=== PATIENT | male | born 1990 | race Two or more races ===

== ENCOUNTER 2024-08-26 17:13 | Emergency (ER) | payer SELFPAY ==
[2024-08-26 17:30] VITALS: BP 149/99; PULSE 88; RESP 18; TEMP 36.8; O2SAT 99; BMI 27.5
--- NOTE | 2024-08-26 17:33 | XR_ITS ---
Examination: Duplex scan of the lower extremity, unilateral left complete Date and time of exam: August 26, 2024 1946 hrs. Indications: Left foot and leg pain and swelling 2 months, post injury or Technique: Duplex scan of the extremity veins using B-mode/grayscale imaging and Doppler spectral analysis and color flow Attention is directed to internal echogenicity, compression and augmentation involving these veins, color flow assessment, spectral analysis Findings: Major deep venous structures in the extremity demonstrate normal course and caliber. There is no evidence of deep vein thrombosis. Normal color flow and spectral analysis Impression: Negative for DVT..
--- NOTE | 2024-08-26 17:33 | XR_ITS ---
Examination: Foot, left, 3 views Technique: AP, oblique, lateral views foot, 3 views Date and time of exam: August 26, 2024 at 1748 hrs. Indications: Walking injury one month ago Findings: Healed fracture midshaft second metatarsal No acute fracture No cortical bone destruction Impression: Healed fracture mid second metatarsal shaft
--- NOTE | 2024-08-26 17:33 | XR_ITS ---
EXAMINATION: Ankle, left 3 views . Technique: Ankle AP, oblique, lateral 3 views Date and time of exam: August 26, 2024 1748 hrs. Indications: Walking injury to the ankle one month ago, ankle pain Findings: Mild osteopenia No fracture or dislocation Minute plantar bony calcaneal spur Impression: No fracture or dislocation
--- NOTE | 2024-08-26 17:33 | PD.EDRME ---
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
[2024-08-26] MEDS: IBUPROFEN TAB 400 MG TABLET 800 MG PO (18:13)
--- NOTE | 2024-08-26 21:00 | EDNOTE_ITS ---
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 Denies any redness. Denies any fever denies any other complaints no medications taken prior to arrival. Related Data Previous Rx's ?Medication ?Instructions ?Recorded ibuprofen 800 mg tablet 800 mg PO TID PRN pain #30 tabs 08/26/24 Allergies Allergy/AdvReac Type Severity Reaction Status Date / Time No Known Allergies Allergy Verified 08/26/24 17:16 Review of Systems Review of Systems Narrative Review of Systems: Review of system reviewed and within normal limits except mentioned in HPI ED Exam Narrative Physical exam: VITAL SIGNS: Reviewed. GENERAL APPEARANCE: Alert and interactive, follows commands, no acute distress, HEAD AND FACE: Non-traumatic. ENT: PERRL, pink conjunctivitis, eyelid no trauma, Mucous membrane moist. NECK: Supple, nontender, no nuchal rigidity. CHEST: No tenderness, no crepitus, no paradoxical movement, no retractions. LUNGS: Clear, well ventilated, symmetric, no rales, no wheezing, no ronchi, no stridor, good breath sounds bilaterally. HEART: Regular rate, regular rhythm, no murmur, no gallops. ABDOMEN: Soft, positive bowel sounds, nondistended, no guarding, nontender, no rebound, no masses, RECTAL: Deferred. GENITAL: Deferred. NEUROLOGICAL: Gross motor function intact sensory function intact, Appropriate for age. MUSCULOSKELETAL: low back nontender, full range of motion. EXTREMITIES: Swelling left foot, no redness, nontender, full range of motion. Distal neurovascular status intact on the left lower extremity , foot and toes SKIN: Color pink, dry, no rash, no lacerations, no abrasions, no contusions. LYMPHATICS: Deferred. Course Quality Measures none Orders Category Date Time Status US venous doppler LE LT Stat Exams 08/26/24 17:33 Completed XR ankle comp LT min 3V Stat Exams 08/26/24 17:33 Completed XR foot comp LT min 3V Stat Exams 08/26/24 17:33 Completed Ibuprofen Tab [Motrin Tab] Med 08/26/24 17:33 Discontinued 800 mg PO X1 ONE Vital Signs Vital signs: Vital Signs Temperature 98.3 F 08/26/24 17:30 Pulse Rate 88 08/26/24 17:30 Respiratory Rate 18 08/26/24 17:30 Blood Pressure 149/99 H 08/26/24 17:30 Pulse Oximetry (%) 99 08/26/24 17:30 Oxygen Delivery Method Room Air 08/26/24 17:30 Extremity Injury, Lower MDM Narrative MDM Narrative:: 33-year-old male presents to the emergency department complains of left foot pain and swelling 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 Denies any redness. Denies any fever denies any other complaints no medications taken prior to arrival. X-ray of the foot showed healed fracture of the second metatarsal Ultrasound of the lower extremities negative for DVT Patient data External records reviewed:: None Clinical information provided by:: none Social determinants that could affect healthcare access:: none Patient has the following chronic illnesses:: None How is presenting disease/condition affected by chronic disease/condition?: exacerbated by Evaluation data The following diagnostics were reviewed and interpreted by me:: radiology exam(s) Lab and/or radiology exams considered but not ordered:: None Interpretation Summary: Ultrasound of the lower extremities negative for DVT. X-ray of the foot showed healed fracture of the metatarsal second Medications / Prescriptions Medications or Prescriptions considered but not ordered:: None Medication administrations:: Medication Administration History Discontinued Medications Ibuprofen (Ibuprofen Tab 400 Mg Tablet) 800 mg PO X1 ONE Stop: 08/26/24 17:34 Last Admin: 08/26/24 18:13 Dose: 800 mg Documented By: CAMILLE Celeste Consultations Consultation(s) initiated? (list below): No Diagnosis Extremity Injury, Lower Differential Diagnosis: fracture of toe, ankle fracture and other (Foot swelling, DVT) Most likely diagnosis given after review of the tests above:: Foot swelling, healed metatarsal fracture Admission Indicated Admission indicated?: not indicated Admission Request Was there a request for admission?: No Disposition Plan Disposition Plan: Discharge Discharge Attestation Discharge Attestation: The patient was given an opportunity to ask questions and understood the discharge instructions. Discharge instructions specifically effects, indications for sooner follow up or return to the emergency department, and the expected course of current diagnosis. Patient condition: Stable Discharge Plan Plan Patient Disposition: HOME (Self Care) Disposition Comment: stable Prescriptions/Referrals Prescriptions/Med Rec: New ibuprofen 800 mg tablet 800 mg PO TID PRN (Reason: pain) Qty: 30 0RF Referrals: No Primary/Family,Physician [Primary Care Provider] - In 1 week Problem List Clinical Impression: Foot swelling, Healed fracture of metatarsal bone Patient/Caregiver Discharge Instructions Discharge Activity: activity as tolerated Education Materials: ED Leg Swelling in a Single Leg Additional Instructions: Thank you for the opportunity for serving you today. You are stable for discharged . You are advised to: Follow-up with your PCP in 1 to 2 days Return to ED for worsening of symptoms Increase oral fluids Take medication as prescribed Elevate your legs as needed Wear compression stocking as needed in the morning remove it in the afternoon Print Language: Persian Stand Alone Forms: Sara Award Info., Work/School Release, Patient Portal Info Letter BRETT/COOPER Supervising Physician BRETT/COOPER Supervising Physician: MD Michelle
== END 2024-08-26 21:17 | disposition home or self-care (01) ==
PROVIDERS: Emergency Provider Emergency Medicine
DX: S99.912A Unspecified injury of left ankle, initial encounter (principal); S99.922A Unspecified injury of left foot, initial encounter; X58.XXXA Exposure to other specified factors, initial encounter; Y93.01 Activity, walking, marching and hiking; Y99.0 Civilian activity done for income or pay
CPT/HCPCS: 73610; 73630; 93971; 99284; A9270